=== PATIENT | female | born 1940 | race Caucasian/White ===

== ENCOUNTER 2018-04-08 05:33 | Day surgery (SDC) | payer MEDICARE ==
[2018-04-06 10:42] LABS: BASOPHILS % (AUTO) 0.6 % (0.0-5.0); HEMATOCRIT 37.7 % (36-48); LYMPHOCYTES % (AUTO) 23.8 % (21.0-51.0); MEAN CORPUSCULAR HEMOGLOBIN 28.6 pg (27.0-33.0); MEAN CORPUSCULAR HGB CONC 32.3 g/dL (32.0-36.0); MEAN CORPUSCULAR VOLUME 88.7 fL (79-99); MONOCYTES % (AUTO) 6.1 % (3.0-13.0); NEUTROPHILS % (AUTO) 67.5 % (40.0-77.0); PLATELET COUNT (AUTO) 271 K/uL (130-400); RED BLOOD CELL COUNT(AUTO) 4.25 MIL/uL (4.00-5.50); RED CELL DISTRIBUTION WIDTH 16.6 % (11.0-15.5); WHITE BLOOD COUNT (AUTO) 7.4 K/uL (4.8-10.8)
[2018-04-06 10:45] LABS: APPEARANCE,URINE Clear (CLEAR); BILIRUBIN,URINE Negative (NEGATIVE); COLOR,URINE Yellow (YELLOW); GLUCOSE, URINE (UA) Negative (NEGATIVE); KETONES,URINE Negative (NEGATIVE); LEUKOCYTE ESTERASE ,URINE Small (NEGATIVE); NITRATE,URINE Negative (NEGATIVE); OCCULT BLOOD,URINE Negative (NEGATIVE); PROTEIN,URINE Negative (NEGATIVE); UROBILINOGEN,URINE 0.2 mg/dL (0.2-1.0)
[2018-04-06 10:50] LABS: CREATININE 0.8 mg/dL (0.5-1.5); POTASSIUM 4.2 mmol/L (3.5-5.1)
[2018-04-06 10:53] LABS: INR 1.01 (0.85-1.15); PARTIAL THROMBOPLASTIN TIME 31.9 SEC (26.3-35.5); PROTHROMBIN TIME 10.6 SEC (9.6-11.6)
[2018-04-06 10:54] LABS: BACTERIA,URINE Few /HPF (None Seen); RBC,URINE 0-1 /HPF (0-1); WBC,URINE 0-1 /HPF (0-1)
[2018-04-06 10:55] LABS: SQUAMOUS EPITHELIAL CELL,UR 0-2 /HPF (0-2)
[2018-04-06 10:57] VITALS: BP 182/83
[~2018-04-08] VITALS: Ht 167.6 cm; Wt 111.4 kg
[2018-04-08] VITALS (10 sets, daily range): BP systolic 113–141; BP diastolic 58–71
[~2018-04-08 05:33] MED LIST: ALPR0.255 PO; AMLO5TAB9 PO; ASPI-555 PO; ATOR20TA65 PO; BIOTIN PO; CHOL200059 PO; LEVO50TA11 PO; LOSA100T58 PO; MVI PO; OMEP40CA37 PO; SODIUM CHLORIDE 0.9% 500ML 500 ML IV SCH; [UNRECOGNIZED DRUG - OTHER] PO
[2018-04-08] MEDS ORDERED: SODIUM CHLORIDE 0.9% 1000ML 1,000 ML IV ONE (07:38)
[2018-04-08] MEDS ORDERED: LIDOCAINE HCL 1% 20 ML VIAL ONE (10:14)
[2018-04-08] MEDS ORDERED: SODIUM BICARB 50MEQ 50ML VIAL ONE (10:14)
[2018-04-08] MEDS ORDERED: IOHEXOL-350 50ML VIAL IV ONE (10:15)
[2018-04-08] MEDS ORDERED: MEPERIDINE-PF 25 MG/ML SYG ONE (10:15)
[2018-04-08] MEDS ORDERED: NITROGLYCERIN 5 MG/ML 10 ML VIAL IV ONE (10:15)
[2018-04-08] MEDS ORDERED: MIDAZOLAM HCL 1 MG/ML 2ML VIAL ONE (10:15)
[2018-04-08] MEDS ORDERED: HEPARIN SODIUM 1000UNIT/ML 10ML VIAL ONE (10:15)
[2018-04-08] MEDS ORDERED: IOHEXOL-350 75 ML VIAL IV ONE (10:17)
[2018-04-08] MEDS ORDERED: SODIUM CHLORIDE 0.9% 1000ML 1,000 ML IV SCH (11:25)
[2018-04-08] MEDS ORDERED: ACETAMINOPHEN-CODEINE 300/30MG TAB PO PRN (11:30)
--- NOTE | 2018-04-08 16:05 | NUR ---
PT TOLERATED PROCEDURE WELL, WAS ABLE TO REST S/P PROCEDURE TO BLEEDING OR HEMATOMA TO RT GROIN. PT ABLE TO TOLERATE FOOD AND REST COMFORTABLY, ONCE BEDREST WAS OVER PT WAS ABLE TO AMBULATE TO RESTROOM TO VOID WITH STAND BY ASSISTANCE. DAUGHTER AT BEDSIDE FOR INSTRUCTIONS AND HELPED PT DRESS UP. POST CARE INSTRUCTIONS GIVEN TO PT AND FAMILY, BOTH VERBALIZED UNDERSTANDING. PT PLACED IN WHEELCHAIR AND DRIVEN HOME BY .
== END 2018-04-08 16:05 | disposition home or self-care (01) ==
LOC: DAH 05:33
PROVIDERS: ATTEND Internal Medicine Cardiovascular Disease
DX: I35.0 Nonrheumatic aortic (valve) stenosis (principal); Z68.39 Body mass index [BMI] 39.0-39.9, adult; Z79.899 Other long term (current) drug therapy; I10 Essential (primary) hypertension; E78.5 Hyperlipidemia, unspecified; E03.9 Hypothyroidism, unspecified; E66.9 Obesity, unspecified; Z98.890 Other specified postprocedural states; Z82.49 Family history of ischemic heart disease and other diseases of the circulatory system; Z79.01 Long term (current) use of anticoagulants
CPT/HCPCS: 36415; 71045; 80048; 81001; 85025; 85610; 85730; 93005; 93460; A4606; C1760 ×2; C1769 ×2; C1893; C1894 ×2; J1644; J2175; J2250; J3490 ×2; J7030; Q9967 ×2; 99156; 99157